=== PATIENT | female | born 1960 | race Two or more races ===

== ENCOUNTER 2018-06-16 08:30 | Inpatient (IN) | payer OTHER ==
[~2018-06-16] VITALS: Ht 165.1 cm; Wt 95.7 kg
[~2018-06-16 08:30] MED LIST: ACETAMINOPHEN 325 MG TABLET ONE; CELECOXIB 100 MG CAPSULE ONE; oxyCODONE HCL SR 10MG TAB.SR.12H PO ONE
[2018-06-16] MEDS ORDERED: ALBUTEROL FS 2.5 MG/3 ML VIAL.NEB ONE (09:20)
[2018-06-16] MEDS ORDERED: BUPIVACAINE 0.75% DEXT-PF 2 ML AMPUL ONE (09:40)
[2018-06-16] MEDS ORDERED: MIDAZOLAM HCL 2 MG/2ML VIAL ONE (09:41)
[2018-06-16] MEDS ORDERED: CLINDAMYCIN 900 MG/6 ML VIAL ONE (09:41)
[2018-06-16] MEDS ORDERED: MORPHINE SULFATE/PF 10 MG/10ML (1MG/ML) AMPUL ONE (09:41)
[2018-06-16] MEDS ORDERED: BUPIVACAINE 0.5 % PF 150 MG/30 ML VIAL ONE (09:48)
[2018-06-16] MEDS ORDERED: FAMOTIDINE/PF INJ 20 MG/2 ML VIAL IV ONE (10:18)
[2018-06-16] MEDS ORDERED: BACITRACIN 50000 UNITS/VIAL ONE (10:28)
[2018-06-16] MEDS ORDERED: TRANEXAMIC ACID 3,000 MG in SODIUM CHLORIDE IRRIG SOLUTION 70 ML IR ONE (10:30)
[2018-06-16] MEDS ORDERED: diphenhydrAMINE HCL 50 MG/ML VIAL ONE (13:20)
[2018-06-16] MEDS ORDERED: ZOLPIDEM TARTRATE 5 MG TABLET PO PRN (14:00)
[2018-06-16] MEDS ORDERED: HYDROCODONE/APAP 5/325MG 1 EACH TABLET PO PRN (14:00)
[2018-06-16] MEDS ORDERED: oxyCODONE IR immediate release 5 MG PO PRN (14:00)
[2018-06-16] MEDS ORDERED: SENNOSIDES 8.6 MG TABLET PO PRN (14:00)
[2018-06-16] MEDS ORDERED: NALOXONE HCL 0.4 MG/ML AMPUL IV PRN (14:00)
[2018-06-16] MEDS ORDERED: HYDROMORPHONE 1 MG/1 ML DISP.SYRIN IV PRN (14:00)
[2018-06-16] MEDS ORDERED: diphenhydrAMINE HCL 50 MG/ML VIAL IM PRN (14:00)
[2018-06-16] MEDS ORDERED: BISACODYL SUPP (10 MG) 10 MG/SUPP.RECT SUPP.RECT RC PRN (14:00)
[2018-06-16] MEDS ORDERED: ONDANSETRON HCL/PF 4 MG/2 ML VIAL IVP PRN ×3 (14:00→23:30)
[2018-06-16] MEDS ORDERED: DOCUSATE SODIUM 250 MG CAPSULE PO PRN (14:00)
[2018-06-16] MEDS ORDERED: ACETAMINOPHEN 325 MG TABLET PO PRN (14:00)
[2018-06-16] MEDS ORDERED: LORAZEPAM 0.5 MG TABLET PO PRN (15:00)
[2018-06-16] MEDS ORDERED: HYDROMORPHONE INJ 0.5 MG/0.5 ML SYRINGE SQ PRN (15:00)
[2018-06-16 16:00] VITALS: BP 135/85
[2018-06-16] MEDS: IV D5/0.45 NACL 1,000 ML IV PRN (16:08)
[2018-06-16 16:21] VITALS: BP 147/75
--- NOTE | 2018-06-16 16:50 | NUR ---
SUPERVISOR PIPE MANUFA[employer]URE OPENING NOTES RECEIVED PATIENT FROM OR AT 1400. PATIENT IS A/O X4. NO S/S OF RESPIRATORY DISTRESS. DENIES SHORTNESS OF BREATH. DENIES PAIN AT THIS TIME. PATIENT IS ON TELE MONITOR. SAFETY PRECAUTIONS IMPLEMENTED: CALL LIGHT WITHIN REACH, BED IN LOW POSITION, BED LOCKED, SIDERAILS UP X2. WILL CONTINUE TO MONITOR PATIENT.
[2018-06-16] MEDS ORDERED: CHOL100044 PO (17:02)
[2018-06-16] MEDS ORDERED: FAMO-131 PO (17:02)
[2018-06-16] MEDS ORDERED: MAG30ORA PO (17:02)
[2018-06-16] MEDS ORDERED: BIOF1TAB PO (17:02)
--- NOTE | 2018-06-16 17:37 | NUR ---
TELE/RN NOTE RECEIVED A CALL FROM DR RAJAN WITH NEW ORDER TO DISCONTINUE OXYCODONE IR 10 MG Q6HR PRN. THE ORDER IS READ BACK, VERIFIED. NOTED AND CARRIED OUT.
[2018-06-16] MEDS ORDERED: LEVOFLOXACIN 500 MG /D5W 100ML 500 MG in PREMIX 1 EA IV ONE (18:00)
[2018-06-16] MEDS: CLINDAMYCIN 600 MG in IV NS 0.9% 50 ML IV SCH ×2 (19:06→22:41)
--- NOTE | 2018-06-16 19:07 | NUR ---
RN NOTES LEVOFLOXACIN AT 1800 TO BE ENDORSED TO RECORDAK OPERATOR DUE TO PHARMACY DELIVERING THE MEDICATION LATE.
--- NOTE | 2018-06-16 19:30 | NUR ---
RN MS OPENING NOTES RECEIVED PATIENT IN BED AWAKE, ALERT AND ORIENTED X4, VERBALLY RESPONSIVE, ABLE TO MAKE NEEDS KNOWN. BREATHING EVEN AND UNLABORED. NO SOB NOTED. TOLERATING ROOM AIR. NO COMPLAINTS OF PAIN OR DISCOMFORT. NO FACIAL GRIMACING. IV ON RIGHT AC G#18 INTACT AND PATENT. SKIN DRY AND WARM TO TOUCH. AFEBRILE. DRESSING ON LEFT KNEE INTACT AND DRY. ALVAREZ CATH INTACT AND DRAINING YELLOW URINE. ALL OTHER NEEDS ATTENDED TO. SAFETY MEASURES IN PLACE. CALL LIGHT WITHIN REACH. WILL CONTINUE TO MONITOR.
[2018-06-16 20:00] VITALS: BP 116/69
[2018-06-16] MEDS ORDERED: FAMOTIDINE (20 MG) 20 MG TABLET PO PRN (21:30)
[2018-06-16] MEDS ORDERED: Z GUARD REMEDY 2 OZ OINT TP PRN (21:30)
[2018-06-16] MEDS: oxyCODONE IR immediate release 5 MG PO PRN (22:18)
--- NOTE | 2018-06-16 22:20 | NUR ---
RN MS NOTES DR. RAJAN AND RN ICU ESTEBAN LEDBETTER HERE IN UNIT AND SAW PATIENT.
[2018-06-16] MEDS ORDERED: CLONIDINE HCL 0.1 MG TABLET PO PRN (23:00)
[2018-06-16] MEDS ORDERED: diphenhydrAMINE HCL 25 MG CAPSULE PO PRN (23:00)
[2018-06-16] MEDS: PANTOPRAZOLE 40 MG TABLET.DR PO SCH (23:25)
[2018-06-17] MEDS: IV D5/0.45 NACL 1,000 ML IV PRN ×2 (02:10→15:50)
[2018-06-17] MEDS: CLINDAMYCIN 600 MG in IV NS 0.9% 50 ML IV SCH (05:16)
[2018-06-17] MEDS: oxyCODONE IR immediate release 5 MG PO PRN ×6 (06:28→23:47)
--- NOTE | 2018-06-17 06:53 | NUR ---
RN MS CLOSING NOTES PATIENT RESTING IN BED. NO ACUTE CHANGES THROUGHOUT SHIFT. BREATHING EVEN AND UNLABORED. NO SOB NOTED. TOLERATING ROOM AIR.WITH COMPLAINTS OF PAIN ON THE LEFT KNEE. PRN MEDICATION RECENTLY GIVEN. IV ON RIGHT AC G#18 INTACT AND PATENT WITH D51/2 NS INFUSING AT 125ML/HR. SKIN DRY AND WARM TO TOUCH. AFEBRILE. DRESSING ON LEFT KNEE INTACT AND DRY. ALVAREZ CATH INTACT AND DRAINING YELLOW URINE. ALL OTHER NEEDS ATTENDED TO. SAFETY MEASURES IN PLACE. CALL LIGHT WITHIN REACH. WILL ENDORSE TO ONCOMING NURSE FOR OFELIA.
--- NOTE | 2018-06-17 06:54 | NUR ---
RN MS NOTES PATIENT REQUESTING TO HAVE ALVAREZ CATH REMOVED, BUT REFUSED AT THIS MOMENT DUE TO PAIN. PATIENT WOULD LIKE PAIN TO WEAR OFF FIRST THEN HAVE IT REMOVED. WILL ENDORSE TO ONCOMING NURSE.
[2018-06-17 07:24] LABS: BASOPHILS % (AUTO) 0.3 % (0.0-2.0); EOSINOPHILS % (AUTO) 2.6 % (0.0-6.0); HEMATOCRIT 45 % (33-45); HEMOGLOBIN 14.1 g/dL (11.5-14.8); LYMPHOCYTES # (AUTO) 2.2 /CMM (0.8-4.8); MEAN CORPUSCULAR HGB CONC 32 g/dl (31.0-36.0); MEAN CORPUSCULAR VOLUME 82 fL (82-100); MONOCYTES # (AUTO) 0.9 /CMM (0.1-1.30); MONOCYTES % (AUTO) 8.2 % (2.0-12.0); NEUTROPHILS # (AUTO) 7.9 /CMM (1.8-8.9); NEUTROPHILS % (AUTO) 69.9 % (43.0-81.0); PLATELET COUNT (AUTO) 171 /CMM (150-450); RED BLOOD CELL COUNT(AUTO) 5.41 MIL/uL (4.0-5.2); WHITE BLOOD COUNT (AUTO) 11.4 K/uL (4.3-11.0)
--- NOTE | 2018-06-17 07:30 | NUR ---
RN MS NOTES Received patient with no sob or ventilatory distress noted. Patient complains of pain on her left knee. Patient remains on room air. Patient getting 125 ml/hr d5 1/2 NS. PRN pain medications given and will continue to monitor patient. Call light within reach and safety measures in place.
[2018-06-17 07:41] LABS: CALCIUM, SERUM 8.7 mg/dL (8.5-10.1); CREATININE 0.9 mg/dL (0.6-1.3); MAGNESIUM 2.3 mg/dL (1.8-2.4); PHOSPHORUS 4.7 mg/dL (2.5-4.9); POTASSIUM 4.5 mmol/L (3.5-5.1)
[2018-06-17 08:00] VITALS: BP 121/59
[2018-06-17] MEDS: ASPIRIN EC 325 MG TABLET.DR PO SCH ×2 (08:28→16:38)
[2018-06-17] MEDS: DOCUSATE SODIUM 100 MG CAPSULE PO SCH ×2 (08:28→16:38)
[2018-06-17] MEDS: CHOLECALCIFEROL 1,000 UNIT TABLET (VIT D3) PO SCH (08:28)
[2018-06-17] MEDS: HYDROMORPHONE 1 MG/1 ML DISP.SYRIN SQ PRN ×4 (09:12→22:03)
--- NOTE | 2018-06-17 13:00 | NUR ---
RN MS NOTES PT IN BED, AWAKE, ALERT AND ORIENTED, PAIN MEDICATION GIVEN FOR PAIN MANAGEMENT ORDERED, NOT IN DISTRESS, SEEN BY DR. SHETTY, PLAN OF CARE DISCUSSED WITH PT, VERBALIZED UNDERSTANDING, CALL LIGHT WITHIN REACH, IV FLUIDS INFUSING WELL, DVT PUMP IN PLACE, NEEDS ATTENDED.
[2018-06-17 16:00] VITALS: BP 126/68
--- NOTE | 2018-06-17 16:32 | NUR ---
RN MS NOTES Patient stated that OXY IR does not help with her pain at this time. But patient refuses to take dilaudid sub Q per order. Patient states that dilaudid makes her feel dizzy. Dr. Fenton ordered to increase oxy IR to 15mg, and decrease dilaudid to 0.5 mg as ordered. Patient informed of the changes, will continue to monitor for pain.
--- NOTE | 2018-06-17 17:07 | NUR ---
RN MS NOTES PT SEEN AND REASSESSED BY MS BRIT GARCÍA FOR ORTHO, PT COMPLAINED OF FEELING OF TIGHTNESS AT THE LEFT LEG, ORDER GIVEN.
--- NOTE | 2018-06-17 18:26 | NUR ---
RN MS closing notes Patient states that 15 mg of oxy IR help with her pain. Patient's vital signs stable all shift, patient able to move all extremity other than her surgically affected leg. Patient on room air and shows no sob or ventilatory distress. Call light within reach, and safety measures in place.
--- NOTE | 2018-06-17 19:10 | NUR ---
MS RN OPENING NOTES Received patient awake on bed with complaints of severe pain on L leg. Day 2 S/P Left knee arthroplasty, with dressing clean, dry and intact, left leg elevated with pillow. With patent peripheral IV line with D5 1/2 NS @ 125 ml/hr as ordered. Instructed patient to notify the nurse for any worsening/new pain. With patent indwelling FC with clear yellow urine output noted. Will continue to monitor patient accordingly.
[2018-06-17 20:00] VITALS: BP 120/60
[2018-06-17 20:21] VITALS: BP 120/67
[2018-06-17] MEDS: PANTOPRAZOLE 40 MG TABLET.DR PO SCH (22:05)
[2018-06-18] MEDS: IV D5/0.45 NACL 1,000 ML IV PRN ×2 (00:41→08:39)
[2018-06-18] MEDS ORDERED: HYDROMORPHONE INJ 0.5 MG/0.5 ML SYRINGE ONE (02:28)
[2018-06-18] MEDS ORDERED: oxyCODONE IR immediate release 5 MG ONE (02:30)
[2018-06-18] MEDS: HYDROMORPHONE 1 MG/1 ML DISP.SYRIN SQ PRN ×3 (02:40→22:47)
[2018-06-18] MEDS: oxyCODONE IR immediate release 5 MG PO PRN ×4 (04:11→21:10)
--- NOTE | 2018-06-18 06:50 | NUR ---
MS RN CLOSING NOTES Patient awake on bed feeling emotional of her medical condition. Encouraged patient to verbalized feelings, assured pain and blood pressure will be monitored and managed accordingly. Medicated for pain, claimed intermittently effective. All due meds given as ordered. Kept bed low and locked, call light at bedside. All nursing needs provided. No new complaints made. Endorsed to the next shift.
[2018-06-18 07:33] LABS: BASOPHILS % (AUTO) 0.3 % (0.0-2.0); EOSINOPHILS % (AUTO) 4.3 % (0.0-6.0); HEMATOCRIT 40 % (33-45); LYMPHOCYTES # (AUTO) 2.1 /CMM (0.8-4.8); LYMPHOCYTES % (AUTO) 18.2 % (20.0-44.0); MEAN CORPUSCULAR HGB CONC 33 g/dl (31.0-36.0); MEAN CORPUSCULAR VOLUME 81 fL (82-100); NEUTROPHILS # (AUTO) 7.7 /CMM (1.8-8.9); NEUTROPHILS % (AUTO) 68.2 % (43.0-81.0); PLATELET COUNT (AUTO) 284 /CMM (150-450); RED BLOOD CELL COUNT(AUTO) 4.88 MIL/uL (4.0-5.2); WHITE BLOOD COUNT (AUTO) 11.3 K/uL (4.3-11.0)
[2018-06-18 07:50] LABS: CALCIUM, SERUM 8.2 mg/dL (8.5-10.1); CREATININE 0.8 mg/dL (0.6-1.3); PHOSPHORUS 3.5 mg/dL (2.5-4.9); POTASSIUM 4.5 mmol/L (3.5-5.1)
[2018-06-18 08:00] VITALS: BP 107/52
--- NOTE | 2018-06-18 08:00 | NUR ---
MS/RN - Assessment Patient awake, A/O x 4, reports moderate pain to left knee op site but refused medication for now, afebrile, stable on room air. Almeida catheter to be removed today. Skin is intact except for left knee surgical incision POD#2 left medial unicompartmental arthroplasty with Dr. Vaughn. Left knee dressing is c/d/i without drainage, discharge, surrounding erythema, or excess warmth. Initial dressing change to be done today by Md. Skin on BLE is warm to touch, negative calf tenderness, negative for edema, sensation on both lower ext are intact, weight bearing as tolerated on LLE. IVF D5 1/2 NS at 125 ml/hr infusing well on the RAC with no signs of infiltration. Labs reviewed, WNL. Fall precautions maintained. All needs attended and met. Will continue with current plan of care.
[2018-06-18] MEDS: ASPIRIN EC 325 MG TABLET.DR PO SCH ×2 (08:39→16:28)
[2018-06-18] MEDS: CHOLECALCIFEROL 1,000 UNIT TABLET (VIT D3) PO SCH (08:39)
[2018-06-18] MEDS: DOCUSATE SODIUM 100 MG CAPSULE PO SCH ×2 (08:39→16:28)
--- NOTE | 2018-06-18 14:30 | NUR ---
MS/RN - Notes Almeida catheter removed at this time per pt's request. Trial void initiated.
--- NOTE | 2018-06-18 15:15 | NUR ---
MS/RN - Notes Patient assisted to bedside commode, able to void without difficulty post celeste catheter removal. All needs attended.
[2018-06-18 16:00] VITALS: BP 129/63
--- NOTE | 2018-06-18 18:15 | NUR ---
MS/RN - End of shift summary Patient resting comfortably, pain much better today, remain afebrile, saline lock on the RAC is patent, intact, with no signs of infiltration. Patient able to walk with PT 60 ft twice, tolerated CPM with 35 degrees flexion for 3.5 hours, right knee dressing changed today by RICKY Murry. Per ortho, stable for discharge to acute rehab today or tomorrow, f/u with Dr. Vaughn in 1 -2 weeks. Anticipate discharge to [facility] tomorrow. Will endorse to the night nurse accordingly.
--- NOTE | 2018-06-18 19:10 | NUR ---
RN Notes Received pt wake in bed, alert and oriented x4. Bed in chair position with left knee dressing clean, dry and intact with ice packs. Pain at tolerable level at this time, 07/16. IV access on Right AC patent and intact. Plan of care discussed with the patient and verbalized understanding. Safety measures and fall precaution in place with call light within reach. Will continue to monitor patient.
[2018-06-18] MEDS: PANTOPRAZOLE 40 MG TABLET.DR PO SCH (21:08)
--- NOTE | 2018-06-18 21:10 | NUR ---
RN Notes Patient complains of pain on her left knee, 09/15. Oxy IR 15 mg tab given PO. Will continue to monitor.
[2018-06-18 22:00] VITALS: BP 111/60
--- NOTE | 2018-06-18 22:47 | NUR ---
RN Notes Patient complains of pain severe pain on her lower back and right knee because she did some exercises as told by the PT. Dilaudid 0.5 mg given IVP. Will continue to monitor pt. Addendum: 06/19/18 at 0541 by JOHNNIE ALLEN RN RN Notes Patient complains of pain severe pain on her lower back and right knee because she did some exercises as told by the PT. Dilaudid 0.5 mg given SQ. Will continue to monitor pt.
[2018-06-19] MEDS: oxyCODONE IR immediate release 5 MG PO PRN ×3 (05:10→14:46)
--- NOTE | 2018-06-19 05:10 | NUR ---
RN Notes Patient complains of right knee pain, 10/15. Oxy IR 15 mg tab given .Will continue to monitor.
--- NOTE | 2018-06-19 07:30 | NUR ---
RN Notes Patient slept well overnight, afebrile. Pain kept at tolerable level with current regimen. Denies nausea and vomiting. Fall precaution observed. All needs attended. Endorsed to morning RN for continuity of care.
[2018-06-19 08:30] VITALS: BP 149/84
[2018-06-19] MEDS: DOCUSATE SODIUM 100 MG CAPSULE PO SCH (09:58)
[2018-06-19] MEDS: ASPIRIN EC 325 MG TABLET.DR PO SCH (09:58)
[2018-06-19] MEDS: CHOLECALCIFEROL 1,000 UNIT TABLET (VIT D3) PO SCH (09:58)
[2018-06-19] MEDS ORDERED: DOCU-141 PO (11:05)
[2018-06-19] MEDS ORDERED: ASPI-869 PO (11:05)
[2018-06-19] MEDS ORDERED: OXYC5CAP18 PO (11:05)
[2018-06-19] MEDS ORDERED: BISACODYL SUPP (10 MG) 10 MG/SUPP.RECT SUPP.RECT RC ONE (11:21)
[2018-06-19] MEDS ORDERED: SENNOSIDES 8.6 MG TABLET PO ONE (11:21)
[2018-06-19 16:00] VITALS: BP 112/58
--- NOTE | 2018-06-19 16:53 | NUR ---
"pt discharged to [facility], no sob noted c/o mild pain 5/10 prior to discharge, gave oxy 15mg PO at 1630. a/o x 4 verbally responsive. on room air. voiding freely, ambulates with assistance. gave discharge instructions to pt, information on ASE to medication. gave information on new prescription. all needs met. gave report to ron at [facility].pt transported by [facility] via [employer] | Anywhere."
[2018-06-19] MEDS ORDERED: SENNOSIDES 8.6 MG TABLET PO SCH (22:00)
== END 2018-06-19 16:46 | DRG 470 ==
LOC: DS 08:30 → MED 14:33
PROVIDERS: ADMIT Nurse Practitioner Acute Care; ATTEND Internal Medicine
PROC: 0SRD0J9 Replacement of Left Knee Joint with Synthetic Substitute, Cemented, Open Approach (ICD-10-PCS; principal; 2018-06-16)
DX: M17.12 Unilateral primary osteoarthritis, left knee (principal); D68.59 Other primary thrombophilia; M22.42 Chondromalacia patellae, left knee; K21.9 Gastro-esophageal reflux disease without esophagitis; I10 Essential (primary) hypertension; E89.0 Postprocedural hypothyroidism; E66.9 Obesity, unspecified; Z82.3 Family history of stroke; Z96.652 Presence of left artificial knee joint; Z80.9 Family history of malignant neoplasm, unspecified; Z98.890 Other specified postprocedural states; G56.00 Carpal tunnel syndrome, unspecified upper limb; Z74.09 Other reduced mobility; Y99.0 Civilian activity done for income or pay; X58.XXXA Exposure to other specified factors, initial encounter; Z78.0 Asymptomatic menopausal state; Z68.35 Body mass index [BMI] 35.0-35.9, adult
CPT/HCPCS: 36415; 80048-TC; 80061-TC; 83735-TC; 84100-TC; 85025-TC; 86850-TC; 87081-TC; 88305-TC; 88311-TC; 93971-TC; 97110-TC; 97116-TC; 97530-TC; 97760-TC; A4216; A4217; A6402; C1713; G0378; J1170; J1200; J1956; J2250; J2274; J2405; J2704; J3490; J7042; J7120

== ENCOUNTER 2020-01-07 07:28 | Outpatient (CLI) | payer OTHER ==
[~2020-01-07 07:28] MED LIST changes: -ACETAMINOPHEN 325 MG TABLET ONE; +ASPI-869 PO; +BIOF1TAB PO; -CELECOXIB 100 MG CAPSULE ONE; +CHOL100044 PO; +DOCU-141 PO; +FAMO-131 PO; +MAG30ORA PO; +OXYC5CAP18 PO; -oxyCODONE HCL SR 10MG TAB.SR.12H PO ONE
== END 2020-01-07 23:59 | disposition home or self-care (01) ==
DX: Z01.812 Encounter for preprocedural laboratory examination (principal); Z20.828 Contact with and (suspected) exposure to other viral communicable diseases
CPT/HCPCS: 87426; C9803

== ENCOUNTER 2020-01-11 04:45 | Inpatient (IN) | payer OTHER ==
[~2020-01-11] VITALS: Ht 165.1 cm; Wt 96.2 kg
[2020-01-11 05:30] VITALS: BP 145/74
[2020-01-11] MEDS ORDERED: CLINDAMYCIN 600 MG in IV D5W 50 ML IV ONE (05:30)
--- NOTE | 2020-01-11 05:30 | NUR ---
RN NOTES RECEIVED PT. FOR OR, FOR RIGHT TOTAL KNEE ARTHROPLASTY, A/OX4, ADMISSION INSTRUCTION WAS RENDERED,CALL LIGHT WITHIN REACH, SIDERAILSUPX2, CONTINUE TO MONITOR
--- NOTE | 2020-01-11 05:45 | NUR ---
RN NOTES JUNIOR ACCOUNTING CLERK CAME AND TALKED TO THE PATIENT
[2020-01-11] MEDS ORDERED: BACITRACIN 50000 UNITS/VIAL ONE (05:50)
[2020-01-11] MEDS ORDERED: ANESTHESIA TRAY IN PYXIS 1 EA TRAY MC ONE (05:50)
--- NOTE | 2020-01-11 05:50 | NUR ---
SHARIF BALDERAS INSERTED I ON THE RGHT A/C # 18
--- NOTE | 2020-01-11 06:00 | NUR ---
RN NOTES OR STAFF CAME AND SAMPLE GRADER THE PATIENT ON STABLE CONDITION
[2020-01-11] MEDS ORDERED: MIDAZOLAM HCL 2 MG/2ML VIAL ONE (06:20)
[2020-01-11] MEDS ORDERED: FENTANYL PF 250MCG/5ML AMPUL ONE (06:21)
[2020-01-11] MEDS ORDERED: FENTANYL PF 100MCG/2ML AMPUL ONE (06:21)
[2020-01-11] MEDS ORDERED: BUPIVACAINE 0.25% 75 MG/30 ML VIAL ONE (06:22)
[2020-01-11] MEDS ORDERED: HYDROMORPHONE INJ 2 MG/ML DISP.SYRIN ONE (06:22)
[2020-01-11] MEDS ORDERED: ROCURONIUM BROMIDE 50 MG/5 ML ONE (06:23)
[2020-01-11] MEDS ORDERED: FAMOTIDINE/PF INJ 20 MG/2 ML VIAL IV ONE (06:23)
[2020-01-11] MEDS ORDERED: TRANEXAMIC ACID 3,000 MG in SODIUM CHLORIDE IRRIG SOLUTION 70 ML IR ONE (06:30)
[2020-01-11] MEDS ORDERED: CLINDAMYCIN 900 MG/6 ML VIAL ONE (06:37)
[2020-01-11] MEDS ORDERED: MAG355OR32 PO (06:52)
[2020-01-11] MEDS ORDERED: FAMO-131 PO (06:52)
[2020-01-11] MEDS ORDERED: CHOL200076 PO (06:52)
[2020-01-11] MEDS ORDERED: BIOF1TAB PO (06:52)
--- NOTE | 2020-01-11 07:41 | NUR ---
MS RN OPENING NOTES RECEIVED REPORT ON PATIENT WHO IS CURRENTLY IN DAYTIME SURGERY.
[2020-01-11] MEDS ORDERED: BUPIVACAINE 0.5 % PF 150 MG/30 ML VIAL ONE (08:05)
[2020-01-11 10:00] VITALS: BP 130/69
[2020-01-11] MEDS ORDERED: MAG HYDROX/AL HYDROX/SIMETH 30 ML UDC PO PRN (10:00)
[2020-01-11] MEDS ORDERED: MENTHOL/CETYLPYRD (CEPACOL) 1 LOZ LOZENGE MM PRN (10:00)
[2020-01-11] MEDS ORDERED: CLONIDINE HCL 0.1 MG TABLET PO PRN (10:00)
[2020-01-11] MEDS ORDERED: ONDANSETRON HCL/PF 4 MG/2 ML VIAL IVP PRN (10:00)
[2020-01-11] MEDS ORDERED: NALOXONE HCL 0.4 MG/ML AMPUL IV PRN (10:00)
[2020-01-11] MEDS ORDERED: MAGNESIUM HYDROXIDE 30 ML UDC PO PRN (10:00)
[2020-01-11] MEDS ORDERED: oxyCODONE IR immediate release 5 MG PO PRN ×2 (10:00→22:00)
[2020-01-11] MEDS ORDERED: diphenhydrAMINE HCL 25 MG CAPSULE PO PRN (10:00)
--- NOTE | 2020-01-11 10:02 | NUR ---
MS RN NOTES PATIENT BACK FROM OR IN MEDICALLY STABLE CONDITION. PATIENT ON 1 L OF OXYGEN FOR COMFORT SATURATING WELL AT 98%. BREATHING IS EVEN AND UNLABORED AT THIS TIME. VS: B/P 130/69 HR: 84 T: 98.2 MILD PAIN PRESENT AT R KNEE AND PATIENT COMPLAINING OF SLIGHT NAUSEA. WILL CONTINUE TO MONITOR.
[2020-01-11] MEDS: IV D5/ 0.9% NACL 1,000 ML IV PRN ×2 (10:18→19:39)
[2020-01-11] MEDS: HYDROMORPHONE 1 MG/1 ML DISP.SYRIN IM/IV PRN ×3 (10:29→22:48)
[2020-01-11] MEDS ORDERED: SENNOSIDES 8.6 MG TABLET PO PRN (10:30)
[2020-01-11] MEDS ORDERED: ONDANSETRON HCL/PF 4 MG/2 ML VIAL IV PRN (10:30)
[2020-01-11] MEDS ORDERED: DOCUSATE SODIUM 100 MG CAPSULE PO PRN (10:30)
--- NOTE | 2020-01-11 10:31 | NUR ---
MS RN NOTES PATIENT CRYING AND COMPLAINING OF PAIN. PRN PAIN MEDICATION ADMINISTERED. WILL CONTINUE TO MONITOR PATIENT.
[2020-01-11] MEDS: oxyCODONE IR immediate release 5 MG PO PRN ×2 (12:10→18:01)
--- NOTE | 2020-01-11 12:12 | NUR ---
MS RN NOTES PATIENT CRYING AND COMPLAINING OF PAIN. PRN PAIN MEDICATION ADMINISTERED. WILL CONTINUE TO MONITOR PATIENT.
[2020-01-11] MEDS: CLINDAMYCIN 600 MG in IV D5W 50 ML IV SCH ×2 (14:44→22:48)
[2020-01-11] MEDS ORDERED: ANCEF 1 GM/50 ML D5W IV SCH ×2 (15:00)
--- NOTE | 2020-01-11 15:52 | NUR ---
MS RN NOTES PATIENT COMPLAINING OF ITCHY NOSE. PRN BENADRYL GIVEN. WILL CONTINUE TO MONITOR.
[2020-01-11 16:00] VITALS: BP 124/64
[2020-01-11] MEDS: DOCUSATE SODIUM 100 MG CAPSULE PO SCH (16:39)
[2020-01-11] MEDS: FAMOTIDINE (20 MG) 20 MG TABLET PO SCH (16:39)
--- NOTE | 2020-01-11 17:20 | NUR ---
MS OLGUIN NOTES POST SURGERY VTE SCORE >5 PER MD NO CHEMICAL PROPHYLAXIS JUST ACETAMINOPHEN 325 Addendum: 01/11/20 at 1725 by OLMAN PIPER RN MS OLGUIN NOTES POST SURGERY VTE SCORE >5 PER MD NO CHEMICAL PROPHYLAXIS JUST ASPIRIN. CALLED PHARMACY THEY WILL START IT TOMORROW; 24 HRS POST SURGERY.
--- NOTE | 2020-01-11 17:45 | NUR ---
MS RN NOTES PER DR. RAJAN TO ADMINISTER DILAUDID OR OXYCODONE IN 30 MIN
--- NOTE | 2020-01-11 18:49 | NUR ---
MS RN CLOSING NOTES PATIENT IN BED, AWAKE, A/O X4. PATIENT ON ROOM AIR; BREATHING IS EVEN AND UNLABORED AT THIS TIME; NO SOB PRESENT DURING SHIFT. PAIN TREATED WITH PRN PAIN MEDICATION. RAC # [address] AND INTACT INFUSING NS @ 125 MLS/HR. ALL NEEDS ATTENDED DURING THE DAY. ALVAREZ CATHETER DRAINING CLEAR YELLOW URINE WITH 1700 MLS SHIFT OUTPUT. SAFETY PRECAUTIONS IN PLACE; BED IN LOW POSITION AND LOCKED, RAILS UP X2, CALL LIGHT WITHIN REACH. WILL ENDORSE TO PAIN MANAGEMENT SPECIALIST NURSE.
--- NOTE | 2020-01-11 19:20 | NUR ---
MSRN FULLY AWAKE, PATIENT STATED IN A LOT OF PAIN. STATES PO PAIN MED LAST DOSE GIVEN DID NOT HELP HER. ASSESED LEVEL OF PAIN WAS 9/10. PATIENT IN TEARS. ICE PACK OVER RIGHT KNEE MAINTAINED. PRESENT IVF CONTINUED.
--- NOTE | 2020-01-11 19:35 | NUR ---
NAYLA DILAUDED 0.5 MG IVP ADMINISTERED, PAIN MGT DISCUSSED WITH PATIENT. STATES SHE TAKES NEURONTIN AT HOME. DR. RAJAN TO SEE PATIENT TODAY PER REPORT.
[2020-01-11 20:00] VITALS: BP 113/54
[2020-01-11] MEDS ORDERED: BISACODYL SUPP (10 MG) 10 MG/SUPP.RECT SUPP.RECT RC PRN (20:00)
[2020-01-11] MEDS ORDERED: LORAZEPAM 1 MG TABLET PO PRN (20:00)
--- NOTE | 2020-01-11 20:01 | NUR ---
MSRN DR RAJAN AT BEDSIDE. INFORMED PATIENTS CONCERNS REGARDING NEURONTIN.
[2020-01-11] MEDS ORDERED: GABAPENTIN 300 MG CAPSULE PO SCH (20:30)
[2020-01-11] MEDS ORDERED: oxyCODONE IR immediate release 5 MG PO ONE (21:00)
--- NOTE | 2020-01-11 21:00 | NUR ---
MSRN PER DR HERNANDEZ ORDERS, PATIENT WILL BE ON ASA PO CHEMICAL PROPHYLAXIS.
[2020-01-11] MEDS ORDERED: GABAPENTIN 100 MG CAPSULE ONE (21:42)
[2020-01-11] MEDS ORDERED: ZOLPIDEM TARTRATE 5 MG TABLET PO PRN (22:00)
[2020-01-11] MEDS: GABAPENTIN 100 MG CAPSULE PO SCH (22:20)
--- NOTE | 2020-01-11 22:45 | NUR ---
MSRN VERBALIZES SEVERE RIGHT KNEE PAIN, DILAUDED 0.5 MG IVP ADMINISTERED ORDERED. STATED WILL NOT USE ICE PACK FOR NOW, AND WILL TRY NOT TO ASK FOR PAIN MEDS IF HER PAIN IS TOLERABLE. PAIN MGT REVIEWED WITH PATIENT. APPEAR TO UNDERSTAND.
[2020-01-12] MEDS: GABAPENTIN 100 MG CAPSULE PO SCH ×3 (06:08→21:19)
[2020-01-12] MEDS: oxyCODONE IR immediate release 5 MG PO PRN ×3 (06:09→21:21)
[2020-01-12] MEDS: CLINDAMYCIN 600 MG in IV D5W 50 ML IV SCH (06:21)
--- NOTE | 2020-01-12 07:07 | NUR ---
MSRN ABLE TO SLEEP POST MIDNIGHT. SEEN AGAIN BY DR RAJAN FOR THE SEC TIME UPDATE MD REGARDING PAIN MEDS. PRESENT IVF CONTINUED. ALVAREZ DRAINING WELL
--- NOTE | 2020-01-12 07:54 | NUR ---
MS RN OPENING NOTE PATIENT IN BED RESTING COMFORTABLY. PATIENT IN NO ACUTE DISTRESS. NO SOB NOTED. PATIENT BREATHING IS EVEN AND UNLABORED. HOB IS ELEVATED. PATIENT SAFETY PRECAUTIONS IN PLACE. PATIENT BED IS LOCKED AND IN LOWEST POSITION. CALL LIGHT WITHIN REACH. WILL CONTINUE TO MONITOR.
[2020-01-12 08:00] VITALS: BP 121/57
[2020-01-12] MEDS: FAMOTIDINE (20 MG) 20 MG TABLET PO SCH ×2 (09:22→17:59)
[2020-01-12] MEDS: ASPIRIN EC 325 MG TABLET.DR PO SCH (09:22)
[2020-01-12] MEDS: SENNOSIDES 8.6 MG TABLET PO SCH ×2 (09:22→17:59)
[2020-01-12] MEDS: DOCUSATE SODIUM 100 MG CAPSULE PO SCH ×2 (09:22→17:59)
[2020-01-12] MEDS: HYDROMORPHONE 1 MG/1 ML DISP.SYRIN IM/IV PRN ×2 (09:23→15:21)
[2020-01-12 10:45] LABS: BASOPHILS % (AUTO) 0.2 % (0.0-2.0); EOSINOPHILS % (AUTO) 2.4 % (0.0-6.0); HEMATOCRIT 37 % (33-45); HEMOGLOBIN 11.8 g/dL (11.5-14.8); LYMPHOCYTES # (AUTO) 0.7 /CMM (0.8-4.8); LYMPHOCYTES % (AUTO) 8.1 % (20.0-44.0); MEAN CORPUSCULAR HGB CONC 32 g/dl (31.0-36.0); MEAN CORPUSCULAR VOLUME 81 fL (82-100); MONOCYTES # (AUTO) 0.4 /CMM (0.1-1.30); MONOCYTES % (AUTO) 4.7 % (2.0-12.0); NEUTROPHILS # (AUTO) 7.2 /CMM (1.8-8.9); NEUTROPHILS % (AUTO) 84.6 % (43.0-81.0); PLATELET COUNT (AUTO) 175 /CMM (150-450); WHITE BLOOD COUNT (AUTO) 8.5 K/uL (4.3-11.0)
[2020-01-12 11:43] LABS: CALCIUM, SERUM 8.1 mg/dL (8.5-10.1); CREATININE 0.9 mg/dL (0.6-1.3); POTASSIUM 4.4 mmol/L (3.5-5.1)
[2020-01-12] MEDS: IV D5/ 0.9% NACL 1,000 ML IV PRN (13:13)
--- NOTE | 2020-01-12 13:23 | NUR ---
MS RN NOTE DR. HERNANDEZ'S PA ALLY SEEN AND EVALUATED PATIENT.
--- NOTE | 2020-01-12 14:03 | NUR ---
Case Management will follow up with placement and resources for patient.
[2020-01-12 16:00] VITALS: BP 131/46
[2020-01-12] MEDS: ACETAMINOPHEN 325 MG TABLET PO PRN (17:59)
--- NOTE | 2020-01-12 18:01 | NUR ---
MS RN NOTE PATIENT TEMPERATURE 100.0F. TYLENOL PRN GIVEN ORDERED. IMPLEMENTED COOLING MEASURES.
--- NOTE | 2020-01-12 18:44 | NUR ---
MS RN CLOSING NOTE PATIENT IN BED RESTING COMFORTABLY. PATIENT IN NO ACUTE DISTRESS. NO SOB NOTED. PATIENT BREATHING IS EVEN AND UNLABORED. PATIENT STATES NO PAIN AT THIS TIME. NEEDS AND CONCERNS ADDRESSED. PATIENT KEPT CLEAN, DRY, AND COMFORTABLE THROUGHOUT SHIFT. EXPLAINED ALL DUE MEDS. HOB IS ELEVATED. PATIENT SAFETY PRECAUTIONS IN PLACE. PATIENT BED IS LOCKED AND IN LOWEST POSITION. CALL LIGHT WITHIN REACH. WILL ENDORSE CARE TO PM SHIFT FOR OFELIA.
[2020-01-12 20:00] VITALS: BP 122/68
--- NOTE | 2020-01-12 20:00 | NUR ---
MS RN NOTE: Patient in bed watching television comfortably. Patient alert and oriented x 4. Able to make needs known. Noted right leg dressing, dry and intact. On room air and breathing well. Breathing unlabored and even, no SOB or respiratory distress noted. Noted Almeida catheter draining clear yellow output. IV access on right AC, 18 gauge, dressing dry and intact, patent, no redness or infiltration, infusing D5NS @ 125 mL/hr. Safety precaution in place, bed is in the lowest level, brakes are on, alarm is on, side rails x2 are up, and call light is within reach. Will continue to monitor.
--- NOTE | 2020-01-12 21:21 | NUR ---
MS RN NOTE: Patient complains of pain on her right knee and describes it as aching and throbbing. Patient rates pain 8 on a 0-10 numerical scale. Administered PRN Hydrocodone per MD order. Will continue to monitor.
--- NOTE | 2020-01-12 22:00 | NUR ---
MS RN NOTE: Patient temperature 100.4. Cooling measures taken; cold packs on patient forehead and axillae. Will continue to monitor.
--- NOTE | 2020-01-12 22:21 | NUR ---
MS RN NOTE: Reassess patient pain. Patient is sleeping comfortably and shows no signs of pain or discomfort. Will continue to monitor.
--- NOTE | 2020-01-13 | NUR ---
MS RN NOTE: Patient temperature improved to 98.6. Will continue to monitor.
[2020-01-13] MEDS: oxyCODONE IR immediate release 5 MG PO PRN ×2 (03:15→16:35)
--- NOTE | 2020-01-13 03:15 | NUR ---
MS RN NOTE: Patient complains of pain on right knee. Patient describes pain as aching and throbbing and rates pain 8 on a 0-10 numerical scale. Administered PRN Oxycodone per MD order. Will continue to monitor.
[2020-01-13] MEDS: IV D5/ 0.9% NACL 1,000 ML IV PRN (03:25)
--- NOTE | 2020-01-13 04:15 | NUR ---
MS RN NOTE: Reassess pain. Patient in bed resting comfortably. Patient verbalized pain medication effective and rates her pain 6 on a 0-10 numerical scale. Will continue to monitor.
[2020-01-13] MEDS: GABAPENTIN 100 MG CAPSULE PO SCH ×3 (04:21→20:18)
--- NOTE | 2020-01-13 06:30 | NUR ---
MS RN CLOSING NOTE: Patient in bed sleeping comfortably. No SOB or respiratory distress noted. All patient needs were cared for and pain medication was administered upon assessment. Safety precaution is maintained, bed is in the lowest level, bed is locked, alarm is on, side rails x2 are up, and call light is within reach. Will endorse to next shift.
[2020-01-13 07:48] LABS: BASOPHILS % (AUTO) 0.2 % (0.0-2.0); EOSINOPHILS % (AUTO) 4.2 % (0.0-6.0); HEMATOCRIT 36 % (33-45); HEMOGLOBIN 11.5 g/dL (11.5-14.8); LYMPHOCYTES # (AUTO) 0.9 /CMM (0.8-4.8); MEAN CORPUSCULAR HGB CONC 32 g/dl (31.0-36.0); MEAN CORPUSCULAR VOLUME 82 fL (82-100); MONOCYTES # (AUTO) 0.6 /CMM (0.1-1.30); MONOCYTES % (AUTO) 7.2 % (2.0-12.0); NEUTROPHILS # (AUTO) 6.8 /CMM (1.8-8.9); NEUTROPHILS % (AUTO) 78.4 % (43.0-81.0); PLATELET COUNT (AUTO) 177 /CMM (150-450); RED BLOOD CELL COUNT(AUTO) 4.45 MIL/uL (4.0-5.2); WHITE BLOOD COUNT (AUTO) 8.7 K/uL (4.3-11.0)
[2020-01-13 08:00] VITALS: BP 139/62
[2020-01-13 08:41] LABS: CALCIUM, SERUM 8.2 mg/dL (8.5-10.1); CREATININE 0.8 mg/dL (0.6-1.3); POTASSIUM 3.7 mmol/L (3.5-5.1)
[2020-01-13] MEDS: HYDROMORPHONE 1 MG/1 ML DISP.SYRIN IM/IV PRN ×3 (10:18→21:26)
[2020-01-13] MEDS: ASPIRIN EC 325 MG TABLET.DR PO SCH (11:03)
[2020-01-13] MEDS: FAMOTIDINE (20 MG) 20 MG TABLET PO SCH ×2 (11:03→16:53)
[2020-01-13] MEDS: DOCUSATE SODIUM 100 MG CAPSULE PO SCH ×2 (11:03→16:53)
[2020-01-13] MEDS: SENNOSIDES 8.6 MG TABLET PO SCH ×2 (11:04→16:53)
[2020-01-13 16:00] VITALS: BP 139/78
--- NOTE | 2020-01-13 18:00 | NUR ---
ortho pa in to visit as well as dr. gaines.ptx in x2.med. x3 for pain.original plan was for dc of pt. today and transfer to [facility].pt. extremely anxious about dc and dc to be for tomorrow.refuses ativan.
--- NOTE | 2020-01-13 19:50 | NUR ---
MS RN NOTES PATIENT IN BED, AWAKE, ALERT AND ORIENTED X4. BREATHING EVEN AND UNLABORED ON ROOM AIR. SHOWS NO SIGNS OF ACUTE RESPIRATORY DISTRESS NO ACUTE PAIN. FC INTACT AND IN PLACE FLOWING YELLOW CLEAR URINE. IV ON RAC 18G RUNNING D5NS AT 125ML/HR. SHOWS NO SIGNS OF INFILTRATION, NO REDNESS. SAFETY PRECAUTIONS IN PLACE. BED IN LOWEST POSITION, LOCKED, AND CALL LIGHT KEPT WITHIN REACH. WILL CONTINUE TO MONITOR.
[2020-01-13 20:00] VITALS: BP 141/73
[2020-01-13] MEDS: ACETAMINOPHEN 325 MG TABLET PO PRN (20:15)
--- NOTE | 2020-01-13 21:15 | NUR ---
MS RN NOTES PATIENT TEMP 101.3. GIVEN PRN TYLENOL AT 2014. ONE HOUR AFTER TYLENOL, RECHECKED TEMP, CURRENTLY 98.9. WILL CONTINUE TO MONITOR.
--- NOTE | 2020-01-13 21:26 | NUR ---
MS RN NOTES PATIENT COMPLAINING OF PAIN AT SURGICAL SITE 11/15. GIVEN PRN DILAUDID AT 2125. WILL CONTINUE TO MONITOR.
[2020-01-14] MEDS: GABAPENTIN 100 MG CAPSULE PO SCH (05:33)
[2020-01-14] MEDS: oxyCODONE IR immediate release 5 MG PO PRN ×2 (05:49→10:34)
--- NOTE | 2020-01-14 05:49 | NUR ---
MS RN NOTES DR. RAJAN ASKED TO GIVEN OXY IR 15MG. PT VITAL SIGNS WNL. GIVEN AT 0549. WILL CONTINUE TO MONITOR.
--- NOTE | 2020-01-14 07:15 | NUR ---
MS RN NOTES PATIENT IN BED, ASLEEP, ALERT AND ORIENTED X4. BREATHING EVEN AND UNLABORED ON ROOM AIR. SHOWS NO SIGNS OF ACUTE RESPIRATORY DISTRESS NO ACUTE PAIN. FC INTACT AND IN PLACE FLOWING YELLOW CLEAR URINE. IV ON RAC 18G RUNNING D5NS AT 125ML/HR. SHOWS NO SIGNS OF INFILTRATION, NO REDNESS. SURGICAL SITE DRESSING CLEAN DRY AND INTACT. WITH NO S/S OF POOR CIRCULATION. ALL DUE MEDICATIONS GIVEN. ALL NEEDS ATTENDED TO. SAFETY PRECAUTIONS IN PLACE. BED IN LOWEST POSITION, LOCKED, AND CALL LIGHT KEPT WITHIN REACH. WILL ENDORSE TO ONCOMING NURSE
--- NOTE | 2020-01-14 07:20 | NUR ---
MS RN NOTES PATIENT RECEIVED IN BED, AWAKE, ALERT AND ORIENTED X4. ON ROOM AIR WITH NO SIGNS OF ACUTE RESPIRATORY DISTRESS, WITH EVEN NON-LABORED BREATHING. PATIENT SEEN BY AND INFORMED TO REMOVE ALVAREZ CATHETER. IV ACCESS ON RAC 18G RUNNING D5NS AT 125ML/HR. SKIN WARM AND DRY TOUCH. SAFETY PRECAUTIONS IN PLACE WITH BED IN LOWEST POSITION, BED LOCKED, BILATERAL SIDE RAILS UP AND CALL LIGHT KEPT WITHIN REACH OF THE PATIENT. WILL CONTINUE TO MONITOR.
[2020-01-14] MEDS ORDERED: Naloxone Hcl IV (07:22)
[2020-01-14] MEDS ORDERED: OXYC5CAP18 PO (07:22)
[2020-01-14] MEDS ORDERED: DOCU-270 PO (07:22)
[2020-01-14] MEDS ORDERED: GABA100C PO (07:22)
[2020-01-14] MEDS ORDERED: HYDR1DIS2 IM/IV (07:22)
[2020-01-14] MEDS ORDERED: SENN-261 PO (07:22)
[2020-01-14 07:36] LABS: BASOPHILS % (AUTO) 0.4 % (0.0-2.0); EOSINOPHILS % (AUTO) 5.5 % (0.0-6.0); HEMATOCRIT 37 % (33-45); HEMOGLOBIN 11.8 g/dL (11.5-14.8); LYMPHOCYTES # (AUTO) 1.1 /CMM (0.8-4.8); LYMPHOCYTES % (AUTO) 15.3 % (20.0-44.0); MEAN CORPUSCULAR HGB CONC 32 g/dl (31.0-36.0); MEAN CORPUSCULAR VOLUME 82 fL (82-100); MONOCYTES # (AUTO) 0.6 /CMM (0.1-1.30); MONOCYTES % (AUTO) 8.9 % (2.0-12.0); NEUTROPHILS # (AUTO) 4.9 /CMM (1.8-8.9); NEUTROPHILS % (AUTO) 69.9 % (43.0-81.0); PLATELET COUNT (AUTO) 193 /CMM (150-450); RED BLOOD CELL COUNT(AUTO) 4.52 MIL/uL (4.0-5.2)
[2020-01-14] MEDS ORDERED: ACETAMINOPHEN 325 MG TABLET PO ONE (07:50)
[2020-01-14 07:52] LABS: CALCIUM, SERUM 8.6 mg/dL (8.5-10.1); CREATININE 0.7 mg/dL (0.6-1.3); POTASSIUM 3.9 mmol/L (3.5-5.1)
[2020-01-14 08:00] VITALS: BP 120/57
[2020-01-14] MEDS: ASPIRIN EC 325 MG TABLET.DR PO SCH (08:10)
[2020-01-14] MEDS: SENNOSIDES 8.6 MG TABLET PO SCH (08:11)
[2020-01-14] MEDS: DOCUSATE SODIUM 100 MG CAPSULE PO SCH (08:11)
[2020-01-14] MEDS: FAMOTIDINE (20 MG) 20 MG TABLET PO SCH (08:11)
--- NOTE | 2020-01-14 10:35 | NUR ---
MS RN NOTES PATIENT STATING PAIN ON RIGHT KNEE AND REQUESTING PAIN MEDICATION, ADMINISTERED PRN OXY IR PO 15 mg ORDERED. WILL CONTINUE TO MONITOR PATIENT.
--- NOTE | 2020-01-14 13:15 | NUR ---
CAN DRAGGER NOTES PATIENT ALERT AND ORIENTED X 4 ON ROOM AIR WITH NO SIGNS OF RESPIRATORY DISTRESS WITH EVEN NON-LABORED BREATHING AND NO SIGNS OF SOB NOTED. VITAL SIGNS STABLE. PATIENT IV ACCESS REMOVED WITH CATHETER TIP INTACT AND APPLIED PRESSURE TO SITE. ID BAND REMOVED. PATIENT ACCOUNTED FOR ALL BELONGINGS. PROVIDED EXIT CARE/ [facility] FOR [facility] AND SPOKE WITH FIDLE OLGUIN . PATIENT LEFT UNIT VIA GURNEY ACCOMPANIED BY EMT.
== END 2020-01-14 13:15 | DRG 470 ==
LOC: DS 04:45 → MED 04:46 → DS 04:47 → MED 01-13 10:20 → DS 01-13 10:20
PROVIDERS: ADMIT Family Medicine; ATTEND Family Medicine
PROC: 0SRC0J9 Replacement of Right Knee Joint with Synthetic Substitute, Cemented, Open Approach (ICD-10-PCS; principal; 2020-01-11)
DX: M17.11 Unilateral primary osteoarthritis, right knee (principal); G47.9 Sleep disorder, unspecified; Z68.35 Body mass index [BMI] 35.0-35.9, adult; R73.9 Hyperglycemia, unspecified; E66.9 Obesity, unspecified; Z79.82 Long term (current) use of aspirin; Z79.899 Other long term (current) drug therapy; E03.9 Hypothyroidism, unspecified
CPT/HCPCS: 36415; 80048-TC; 82962-TC; 85025-TC; 87081-TC; 88305-TC; 88311-TC; 97110-TC; 97116-TC; 97530-TC; 97760-TC; A4217; C1713; C1776; G0378; J0690; J1170; J2250; J2704; J2765; J3010; J3490; J7042; J7060; L1830; Q0163